=== PATIENT | female | born 1945 | race African-American/Black ===

== ENCOUNTER 2024-06-10 21:05 | Emergency (ER) | payer OTHER ==
[~2024-06-10] VITALS: Ht 165.1 cm; Wt 68.2 kg
[~2024-06-10 21:05] MED LIST: ASPI81CH59 PO; CIPR-173 PO; ENAL1TAB48 PO; GLIP5TAB21 PO; METF-372 PO; METR500T PO; OXYB15TA12 PO; SIMV20TA20 PO
[2024-06-10 21:45] VITALS: PULSE 87; RESP 16; O2SAT 95
[2024-06-10 22:17] LABS: Basophils # (auto) 0.1 10 ^3/uL (0-0.2); Basophils % (auto) 0.6 % (0.0-2.0); Eosinophils # (auto) 0 10 ^3/uL (0-0.8); Hematocrit 37.2 % (36.0-46.0); Hemoglobin 12.2 g/dL (12.2-16.2); Lymphocytes # (auto) 1.4 10 ^3/uL (0.4-5.4); Lymphocytes % (auto) 14.7 % (10.0-50.0); Mean Corpuscular Hemoglobin 30.9 pg (28.0-32.0); Mean Corpuscular Hgb Conc. 32.9 g/dL (32.0-36.0); Mean Corpuscular Volume 93.9 fL (80.0-100.0); Monocytes # (auto) 0.9 10 ^3/uL (0-1.3); Monocytes % (auto) 9.1 % (0.0-12.0); Neutrophils # (auto) 7.4 10 ^3/uL (1.6-8.6); Neutrophils % (auto) 75.6 % (37.0-80.0); Nucleated Red Blood Cells % 0.1 %; Platelet Count (auto) 200 10^3/uL (140-450); Red Blood Cells 3.96 10^6/uL (4.0-5.20); White Blood Cell 9.7 10^3/uL (4.4-10.8)
[2024-06-10 22:24] LABS: Alanine Aminotransferase 32 U/L (7-40); Albumin 4.3 g/dL (3.2-4.8); Alkaline Phosphatase 78 U/L (46-116); Anion Gap 10 (5-15); BUN/Creatinine Ratio 13.1 (10.0-20.0); Bilirubin, Total 0.4 mg/dL (0.2-1.0); Blood Urea Nitrogen 20 mg/dL (9-23); Calcium 9.2 mg/dL (8.7-10.4); Carbon Dioxide 22 mmol/L (20-31); Chloride 99 mmol/L (98-107); Potassium 3.8 mmol/L (3.5-5.1); Total Protein 7.5 g/dL (5.7-8.2)
[2024-06-10 22:26] LABS: Aspartate Aminotransferase 51 U/L (13-40); Glucose 248 mg/dL (74-106); Sodium 131 mmol/L (136-145)
[2024-06-10 23:02] LABS: COVID19 ANTIGEN SOFIA FIA NEGATIVE (NEGATIVE)
--- NOTE | 2024-06-10 23:03 | ED.PDOC ---
History of Present Illness HPI Comments 78 y/o F, with a Hx of CABG, DM, HLD, HTN, and ME, is BIBA for c/o bilateral leg weakness, poor appetite, and diarrhea, today. Per EMS report, patient endorses on leg weakness and poor appetite that has been persisting since initial onset, yesterday, following extensive, multiple diarrhea episodes for the past 3 days. EMS staff noted on patient's daughter commenting on patient also, occasionally, "closing her eyes and not responding to her name for several seconds" and her becoming, suddenly, incontinent, this evening, when being seated in the bathroom. On scene, patient's vitals were stable and within normal limits, with exception of a blood pressure of 95/64. At time of assessment, patient reports, additionally, on falling 3x since onset of weakness (2x on left-side, 1x on right-side) and sustaining mild bruising to her left leg area. She reports no further relevant or pertinent Hx, such as recent sick contact or prior injuries. She denies having any fever, chills, nausea, vomiting, abdominal pain, numbness, tingling, or other associated symptoms or modifiers at this time. Chief Complaint: General Weakness Time Seen by MD: 21:20 Primary Care Provider: ZUNILDA Reviewed Notes: Nurses Notes, Truck Technician Notes, Medications, Allergies Allergies: Coded Allergies: Penicillins (Unverified Allergy, Unknown, 06/16/15) Home Meds Active Scripts Metronidazole (Flagyl) 500 Mg Tab, 500 MG PO TID, #21 TAB Prov:TIFFANI BRANTLEY MD 06/16/15 Ciprofloxacin Hcl (Cipro) 500 Mg Tab, 500 MG PO BID, #14 TAB Prov:TIFFANI BRANTLEY MD 06/16/15 Reported Medications Glipizide (Glipizide) 5 Mg Tab, 1 TAB PO BID, #60 TAB 3 Refills 06/16/15 Simvastatin (Simvastatin) 20 Mg Tab, 1 TAB PO QPM, #30 TAB 5 Refills 06/16/15 Oxybutynin Chloride (Ditropan Xl) 15 Mg Tab, 1 TAB PO DAILY, #30 TAB 11 Refills 06/16/15 Metformin Hydrochloride (Metformin Hcl) 1,000 Mg Tab, 1 TAB PO BID, #60 TAB 5 Refills 06/16/15 Enalapril Maleate (Enalapril Maleate) 20 Mg Tab, 1 TAB PO DAILY, #90 TAB 1 Refill 06/16/15 Aspirin (Aspirin Low Dose) 81 Mg Chw, 1 TAB PO DAILY, #30 TAB 3 Refills 06/16/15 Information Source: Patient, Emergency Med Personnel Mode of Arrival: EMS Severity: Moderate Timing: Hours Duration: Since onset Prehospital treatment: 12 Lead EKG, Accucheck, Drawer In Plain Loom Review of Systems: REVIEW OF SYSTEMS: No fever, no chills, or fatigue HEENT: No sore throat, no earache, no congestion, no neck pain. Cardiac: No chest pain. No palpitations. Lungs: No shortness of breath, no cough. GI: Diarrhea, poor appetite, no nausea, no vomiting, no constipation, no abd ominal pain : No dysuria, frequency, or urgency. No hematuria. Musculoskeletal: No joint pain , no joint swelling, no extremity edema. Skin: Bruising to left leg, no rash, no itching. Neuro: Bilateral leg weakness, no headache, no dizziness Vital Signs Vital Signs Date Time Temp Pulse Resp B/P (MAP) Pulse Ox O2 Delivery O2 Flow Rate FiO2 06/11/24 00:00 89 132/59 (83) 93 06/10/24 21:45 98.4 16 98.4 06/10/24 21:45 Room Air* 0 21 Physical Exam General: Awake, alert and oriented. No acute distress. Skin: Skin in warm, dry and intact. Appropriate color for ethnicity. Nailbeds pink with no cyanosis. HEENT: The head is normocephalic and atraumatic. Conjunctivae are clear without exudates or hemorrhage. Sclera is non-icteric. EOM are intact. No signs of nystagmus. Eyelids are normal in appearance without swelling or lesions. Oral mucosa is pink and moist Neck: The neck is supple with normal range of motion. No JVD. Cardiac: Heart rate and rhythm are normal. No murmurs, gallops, or rubs are auscultated. Respiratory: No signs of respiratory distress. Lung sounds are clear in all lobes bilaterally without rales, ronchi, or wheezes. Abdominal: Suprapubic abdominal tenderness. Abdomen is soft, without distention. Bowel sounds are present and normoactive in all four quadrants. Extremities: Upper and lower extremities are atraumatic in appearance without deformity or edema. Neurological: The patient is awake, alert and oriented to person, place, and time with normal speech. Speech is clear. There is no facial asymmetry. Able to raise both lower extremities off the bed, with normal ankle strength. Psychiatric: Appropriate mood and affect. Good judgement and insight. No visual or auditory hallucinations. Past Medical History PAST MEDICAL HISTORY: DM, High Lipids, HTN, ME Surgical History: CABG LIBRARY SUPERVISOR History: No Pertinent LIBRARY SUPERVISOR History Family History Family History: Unknown Social History Smoker: Non-Smoker Alcohol: Denies ETOH Use Drugs: Denies Drug Use Lives In: Home Other Hx of walker use, does not use, currently Was a procedure done? Was a procedure done?: No EKG EKG : Pulse Rate (adult): 83 [place]: Normal Cardiac Rhythm: NSR Block: None Hypertrophy: None ST: Normal Differential Dx Considerations may include: electrolyte imbalance, dehydration, viral syndrome, UTI, degenerative disc disease X-Ray, Labs, Meds, VS Vital Signs Date Time Temp Pulse Resp B/P (MAP) Pulse Ox O2 Delivery O2 Flow Rate FiO2 06/11/24 00:00 89 132/59 (83) 93 06/10/24 23:03 83 06/10/24 21:45 98.4 82 16 106/53 (70) 95 98.4 06/10/24 21:45 87 16 95 Room Air* 0 21 06/10/24 21:25 98.2 92 18 94/62 (73) 97 06/10/24 21:09 83 Lab Test 06/11/24 00:14 06/10/24 22:00 06/10/24 21:52 Range/Units Urine Color Light-yellow Yellow Urine Clarity Clear Clear Urine pH 6.0 5.0-9.0 Urine Specific [place] 1.011 1.001-1.035 Urine Protein 1+ H Negative Urine Ketones Negative Negative Urine Blood Negative Negative /uL Urine Nitrite Negative Negative Urine Bilirubin Negative Negative Urine Urobilinogen Normal Negative mg/dL Urine Leukocyte Esterase Negative Negative /uL Urine RBC 1 0 - 4 /hpf Urine WBC <1 0 - 5 /hpf Urine Squamous Epithelial Cells None seen <5 /hpf Urine Bacteria None seen None Seen /hpf Urine Glucose Normal Normal mg/dL Influenza Type A Antigen Positive Negative Influenza Type B Antigen Negative Negative SARS-CoV-2 Antigen (Rapid) Negative NEGATIVE White Blood Count 9.7 4.4-10.8 10^3/uL Red Blood Count 3.96 L 4.0-5.20 10^6/uL Hemoglobin 12.2 12.2-16.2 g/dL Hematocrit 37.2 36.0-46.0 % Mean Corpuscular Volume 93.9 80.0-100.0 fL Mean Corpuscular Hemoglobin 30.9 28.0-32.0 pg Mean Corpuscular Hemoglobin Concent 32.9 32.0-36.0 g/dL Red Cell Distribution Width 14.0 11.8-14.3 % Platelet Count 200 140-450 10^3/uL Mean Platelet Volume 8.2 6.9-10.8 fL Neutrophils (%) (Auto) 75.6 37.0-80.0 % Lymphocytes (%) (Auto) 14.7 10.0-50.0 % Monocytes (%) (Auto) 9.1 0.0-12.0 % Eosinophils (%) (Auto) 0.0 0.0-7.0 % Basophils (%) (Auto) 0.6 0.0-2.0 % Neutrophils # (Auto) 7.4 1.6-8.6 10 ^3/uL Lymphocytes # (Auto) 1.4 0.4-5.4 10 ^3/uL Monocytes # (Auto) 0.9 0-1.3 10 ^3/uL Eosinophils # (Auto) 0 0-0.8 10 ^3/uL Basophils # (Auto) 0.1 0-0.2 10 ^3/uL Nucleated Red Blood Cells 0.1 % Sodium Level 131 L 136-145 mmol/L Potassium Level 3.8 3.5-5.1 mmol/L Chloride Level 99 98-107 mmol/L Carbon Dioxide Level 22 20-31 mmol/L Anion Gap 10 5-15 Blood Urea Nitrogen 20 9-23 mg/dL Creatinine 1.53 H 0.550-1.02 mg/dL Glomerular Filtration Rate Calc 34 >90 mL/min BUN/Creatinine Ratio 13.1 10.0-20.0 Serum Glucose 248 H 74-106 mg/dL Lactic Acid Level 1.8 0.4-2.0 mmol/L Calcium Level 9.2 8.7-10.4 mg/dL Total Bilirubin 0.4 0.2-1.0 mg/dL Aspartate Amino Transferase (AST) 51 H 13-40 U/L Alanine Aminotransferase (ALT) 32 7-40 U/L Alkaline Phosphatase 78 46-116 U/L Total Protein 7.5 5.7-8.2 g/dL Albumin 4.3 3.2-4.8 g/dL Current Medications Medications (Trade) Dose Ordered Sig/Hugo Route Start Time Stop Time Status Last Admin Sodium Chloride 1,000 ml @ 1,000 mls/hr Q1H ONCE IV 06/10/24 21:30 06/10/24 22:29 DC 06/11/24 00:43 [place] [address] Ph: [phone] DIAGNOSTIC IMAGING Diagnostic Imaging Report : [id number] Signed PATIENT: BUZZ VIEIRA ACCT: [id number] UNIT: [id number] : 1945 LOC: ER ROOM / BED: / AGE / SEX: 78 / F ADM STATUS: REG ER SERVICE ORDERING PHYSICIAN: CONY BERGER MD PROCEDURE(s): HWOCT - HEAD WITHOUT CONTRAST REASON: General weakness, B/L LE weakness, abd pain ORDER NUMBER(s): [id number], ACCESSION NUMBER(s): [id number] CLINICAL HISTORY: General weakness, B/L LE weakness, abd pain TECHNIQUE: Helical imaging carried out from skull base to vertex without intravenous contrast. This exam was performed according to our departmental dose optimization program. Up-to-date CT equipment and radiation dose reduction techniques are utilized as appropriate. CTDIVol: [CTDIvol] mGy DLP: 2035.4 mGy-cm WID: COMPARISON: None FINDINGS: Mild cerebral volume loss with concordant prominence of the subarachnoid spaces and ventricles. There is mild patchy low attenuation in the cerebral white matter consistent with nonspecific white matter disease. There is no midline shift or mass effect. The castro white matter interfaces are maintained. The basal cisterns are patent. There is no evidence of acute intracranial hemorrhage or extra-axial fluid collection. The mastoid air cells and visualized paranasal sinuses are well-aerated. The patient is edentulous. There is cerumen within the left external auditory canal. IMPRESSION: 1. No acute intracranial abnormality. 2. Mild cerebral volume loss and mild chronic microvascular ischemic change. ATED BY: MALGORZATA BAUTISTA MD DICTATED DATE/TIME: 06/11/24124 SIGNED BY: MALGORZATA BAUTISTA MD SIGNED DATE/TIME: 06/11/24124 CC: [place] [address] Ph: [phone] DIAGNOSTIC IMAGING Diagnostic Imaging Report : [id number] Signed PATIENT: BUZZ VIEIRA ACCT: [id number] UNIT: [id number] : 1945 LOC: ER ROOM / BED: / AGE / SEX: 78 / F ADM STATUS: REG ER SERVICE ORDERING PHYSICIAN: CONY BERGER MD PROCEDURE(s): CXR1 - CHEST XRAY 1 VIEW REASON: Suspected Sepsis ORDER NUMBER(s): [id number], ACCESSION NUMBER(s): [id number] EXAM: XY CHEST XRAY 1 VIEW CLINICAL HISTORY: Suspected Sepsis TECHNIQUE: Single AP view of the chest WID: COMPARISON: CT abdomen and pelvis from same day FINDINGS: Lines and tubes: Prior median sternotomy and CABG Chest: Mild cardiomegaly without pulmonary vascular congestion. No pleural effusion, pneumothorax, or consolidation. Linear bibasilar scarring or atelectasis. The osseous structures are grossly intact. Degenerative change of the right shoulder IMPRESSION: 1. No acute cardiopulmonary abnormality. 2. Mild cardiomegaly. ATED BY: MALGORZATA BAUTISTA MD DICTATED DATE/TIME: 06/11/24121 SIGNED BY: MALGORZATA BAUTISTA MD SIGNED DATE/TIME: 06/11/24121 CC: [place] [address] Ph: [phone] DIAGNOSTIC IMAGING Diagnostic Imaging Report : [id number] Signed PATIENT: BUZZ VIEIRA ACCT: [id number] UNIT: [id number] : 1945 LOC: ER ROOM / BED: / AGE / SEX: 78 / F ADM STATUS: REG ER SERVICE ORDERING PHYSICIAN: CONY BERGER MD PROCEDURE(s): ABPL - CT AB PEL WO CON-NO ORAL OR IV REASON: abdominal pain, ORDER NUMBER(s): [id number], ACCESSION NUMBER(s): [id number] CLINICAL HISTORY: abdominal pain, TECHNIQUE: CT of the abdomen and pelvis was performed without intravenous contrast. This exam was performed according to our departmental dose optimizat ion program. Up-to-date CT equipment and radiation dose reduction techniques are utilized as appropriate. COMPARISON: None FINDINGS: Lower Thorax: Median sternotomy wires are visualized. Linear and dependent bibasilar scarring or atelectasis. Mild cardiomegaly. Marked calcification of [place] coronary arteries. Changes of prior CABG partially imaged. Calcified subcarinal lymph nodes. Liver and Biliary system: Normal-sized liver. No definite hepatic lesion. Gallbladder is normal caliber. No biliary ductal dilatation. Spleen: Unremarkable. Adrenal Glands and Kidneys: Normal adrenal glands. No hydronephrosis. Tiny nonobstructing right upper pole renal calculus. Pancreas and Retroperitoneum: Mild atrophy of the pancreas. There is no retroperitoneal lymphadenopathy. Aorta and Major Vessels: Aortoiliac vessels are normal in caliber with moderate calcified atherosclerotic plaque in the abdominal aorta and Mild calcified plaque in the iliac vessels.. Bowel, Mesentery and Peritoneal space: Normal caliber small and large bowel. There is mild distal colonic diverticulosis. There is no free air or fluid collection. Pelvis: The urinary bladder is decompressed about a Keith catheter. Uterus is atrophic with myometrial vascular calcifications. The ovaries are atrophic. There is no pelvic lymphadenopathy. Abdominal wall and Osseous Structures: Multilevel lower thoracic and lumbar spondylosis. There is bony demineralization. No destructive osseous lesion. IMPRESSION: 1. No bowel obstruction, fluid collection, or free air. 2. Mild distal colonic diverticulosis. 3. Nonobstructing right upper pole renal calculus. 4. Keith catheter decompresses the urinary bladder. 5. Mild cardiomegaly, changes of prior CABG, and marked calcification of [place] coronary arteries, all partially imaged ATED BY: MALGORZATA BAUTISTA MD DICTATED DATE/TIME: 06/11/24 0144 SIGNED BY: MALGORZATA BAUTISTA MD SIGNED DATE/TIME: 06/11/24 0144 CC: Time of 1ST Reevaluation: 21:50 Reevaluation 1ST: Unchanged Patient Education/Counseling: Diagnosis, Treatment Family Education/Counseling: No Family Present Departure 1 Departure Time of Disposition: 23:31 Impression: Primary Impression: HARPREET (acute kidney injury) Additional Impressions: Generalized weakness Influenza A Disposition: 09 ADMITTED INPATIENT Condition: Stable Comments 78-year-old female with generalized weakness and difficulty ambulating. Workup shows influenza a infection acute kidney injury and hyponatremia -IV fluids administered in the ED Patient admitted for further treatment, evaluation and monitoring. Extensive evaluation was performed in attempt to identify or rule out: (See differential diagnosis section) The following tests were ordered, and results were reviewed by me: (See diagnostic results section) The following test were independently interpreted by me: EKG I reviewed and agreed with the following test results read by other providers: Chest x-ray I reviewed the following notes from the pt's past medical encounters: Encounter in 2016 for elevated troponin Additional information was gathered from interviewing the following independent historians: N/A Discussion of management or test interpretation with external physician/other qualified health director critical care: Dr. Hair, hospitalist Addressed an acute or chronic illness that poses a threat to life or bodily function: Hyponatremia, acute kidney injury, influenza a infection Decision regarding hospitalization or escalation of hospital level of care: Risk and benefits of admission for further treatment of patient's condition was considered. Due to patient's current clinical condition, high risk of decline and poor outcome if discharged and need for further inpatient management and monitoring, patient will be admitted to the hospital. Drug therapy requiring intensive monitoring for toxicity: N/A Parenteral controlled substances: N/A Decision regarding elective major surgery with identified patient or procedure risk factors: N/A Decision regarding emergency major surgery: N/A Decision not to resuscitate or to de-escalate care because of poor prognosis: N/A Diagnosis or treatment significantly limited by social determinants of health: Elderly patient who lives alone Critical Care Note Critical Care Time?: No Stability Stability form required: No Heart Score Heart Score: Heart Score Response (Comments) Value History N/A 0 EKG N/A 0 Age N/A 0 Risk Factors N/A 0 Troponin N/A 0 Total 0 I personally scribed for CONY BERGER MD ([email or web address]) on 06/10/24 at 23:03. Electronically submitted by Steven Ragsdale ([email or web address]). I personally scribed for CONY BERGER MD ([email or web address]) on 06/10/24 at 23:04. Electronically submitted by Steven Ragsdale ([email or web address]). I personally scribed for CONY BERGER MD ([email or web address]) on 06/11/24 at 02:14. Electronically submitted by Steven Ragsdale ([email or web address]). CONY BERGER MD Jun 10, 2024 23:03
[2024-06-10 23:04] LABS: Rapid Influenza A Positive (Negative); Rapid Influenza B Negative (Negative)
[2024-06-11 00:23] LABS: Urine Bacteria None Seen /hpf (None Seen)
[2024-06-11 00:37] LABS: Urine Blood Negative /uL (Negative); Urine Clarity Clear (Clear); Urine Color Light-Yellow (Yellow); Urine Protein, UAD 1+ (Negative); Urine Specific Gravity 1.011 (1.001-1.035); Urine Squamous Epithelial Cell None Seen /hpf (<5); Urine Urobilinogen Normal (Negative); Urine WBC <1 /hpf (0 - 5)
[2024-06-11] MEDS: SODIUM CHLORIDE 0.9% 1,000 ML IV ONE ×2 (00:43→07:01)
--- NOTE | 2024-06-11 01:25 | DVH ---
EXAM: XY CHEST XRAY 1 VIEW CLINICAL HISTORY: Suspected Sepsis TECHNIQUE: Single AP view of the chest WID: COMPARISON: CT abdomen and pelvis from same day FINDINGS: Lines and tubes: Prior median sternotomy and CABG Chest: Mild cardiomegaly without pulmonary vascular congestion. No pleural effusion, pneumothorax, or consolidation. Linear bibasilar scarring or atelectasis. The osseous structures are grossly intact. Degenerative change of the right shoulder IMPRESSION: 1. No acute cardiopulmonary abnormality. 2. Mild cardiomegaly.
--- NOTE | 2024-06-11 01:27 | DVH ---
CLINICAL HISTORY: General weakness, B/L LE weakness, abd pain TECHNIQUE: Helical imaging carried out from skull base to vertex without intravenous contrast. This e xam was performed according to our departmental dose optimization program. Up-to-date CT equipment an d radiation dose reduction techniques are utilized as appropriate. CTDIVol: [CTDIvol] mGy DLP: 2035.4 mGy-cm WID: COMPARISON: None FINDINGS: Mild cerebral volume loss with concordant prominence of the subarachnoid spaces and ventricles. There is mild patchy low attenuation in the cerebral white matter consistent with nonspecific white matter disease. There is no midline shift or mass effect. The castro white matter interfaces are maintained. The basal cisterns are patent. There is no evidence of acute intracranial hemorrhage or extra-axial fluid sae ection. The mastoid air cells and visualized paranasal sinuses are well-aerated. The patient is edent ulous. There is cerumen within the left external auditory canal. IMPRESSION: 1. No acute intracranial abnormality. 2. Mild cerebral volume loss and mild chronic microvascular ischemic change.
--- NOTE | 2024-06-11 01:47 | DVH ---
CLINICAL HISTORY: abdominal pain, TECHNIQUE: CT of the abdomen and pelvis was performed without intravenous contrast. This exam was per formed according to our departmental dose optimization program. Up-to-date CT equipment and radiation dose reduction techniques are utilized as appropriate. COMPARISON: None FINDINGS: Lower Thorax: Median sternotomy wires are visualized. Linear and dependent bibasilar scarring or atel ectasis. Mild cardiomegaly. Marked calcification of [place] coronary arteries. Changes of prior CABG p artially imaged. Calcified subcarinal lymph nodes. Liver and Biliary system: Normal-sized liver. No definite hepatic lesion. Gallbladder is normal calib er. No biliary ductal dilatation. Spleen: Unremarkable. Adrenal Glands and Kidneys: Normal adrenal glands. No hydronephrosis. Tiny nonobstructing right upper pole renal calculus. Pancreas and Retroperitoneum: Mild atrophy of the pancreas. There is no retroperitoneal lymphadenopat hy. Aorta and Major Vessels: Aortoiliac vessels are normal in caliber with moderate calcified atheroscler otic plaque in the abdominal aorta and Mild calcified plaque in the iliac vessels.. Bowel, Mesentery and Peritoneal space: Normal caliber small and large bowel. There is mild distal col onic diverticulosis. There is no free air or fluid collection. Pelvis: The urinary bladder is decompressed about a Keith catheter. Uterus is atrophic with myometria l vascular calcifications. The ovaries are atrophic. There is no pelvic lymphadenopathy. Abdominal wall and Osseous Structures: Multilevel lower thoracic and lumbar spondylosis. There is [place] demineralization. No destructive osseous lesion. IMPRESSION: 1. No bowel obstruction, fluid collection, or free air. 2. Mild distal colonic diverticulosis. 3. Nonobstructing right upper pole renal calculus. 4. Keith catheter decompresses the urinary bladder. 5. Mild cardiomegaly, changes of prior CABG, and marked calcification of [place] coronary arteries, al l partially imaged
--- NOTE | 2024-06-11 04:10 | ECG ---
[facility] Test Date: 2024-06-10 Test Time: 21:09:47 Pat Name: BUZZ VIEIRA Department: ED Room: Gender: F Correctional Manager: KAREN : 1945 Requested By: EMERGENCY EMERGENCY Order Number: [id number] Reading MD: Measurements Intervals Orient Rate: 83 P: 47 WY: 170 QRS: 12 QRSD: 87 T: 44 QT: 362 QTc: 426 Interpretive Statements Sinus rhythm Borderline ST depression, lateral leads Borderline ST elevation, inferior leads Please click the below link to view image of tracing.
[2024-06-11 07:34] LABS: Basophils # (auto) 0 10 ^3/uL (0-0.2); Basophils % (auto) 0.4 % (0.0-2.0); Eosinophils # (auto) 0 10 ^3/uL (0-0.8); Eosinophils % (auto) 0.1 % (0.0-7.0); Hematocrit 35.8 % (36.0-46.0); Hemoglobin 12.1 g/dL (12.2-16.2); Lymphocytes # (auto) 1.4 10 ^3/uL (0.4-5.4); Lymphocytes % (auto) 18.6 % (10.0-50.0); Mean Corpuscular Hemoglobin 31.1 pg (28.0-32.0); Mean Corpuscular Hgb Conc. 33.7 g/dL (32.0-36.0); Mean Corpuscular Volume 92.4 fL (80.0-100.0); Monocytes # (auto) 0.7 10 ^3/uL (0-1.3); Monocytes % (auto) 9.8 % (0.0-12.0); Neutrophils # (auto) 5.3 10 ^3/uL (1.6-8.6); Neutrophils % (auto) 71.1 % (37.0-80.0); Nucleated Red Blood Cells % 0.1 %; Platelet Count (auto) 181 10^3/uL (140-450); Red Blood Cells 3.88 10^6/uL (4.0-5.20); Red Cell Distribution Width 13.9 % (11.8-14.3); White Blood Cell 7.5 10^3/uL (4.4-10.8)
[2024-06-11 07:38] VITALS: PULSE 84; RESP 20; O2SAT 95
[2024-06-11 07:44] LABS: Alanine Aminotransferase 31 U/L (7-40); Albumin 4.3 g/dL (3.2-4.8); Alkaline Phosphatase 74 U/L (46-116); Anion Gap 9 (5-15); Aspartate Aminotransferase 47 U/L (13-40); BUN/Creatinine Ratio 15.6 (10.0-20.0); Bilirubin, Total 0.4 mg/dL (0.2-1.0); Blood Urea Nitrogen 23 mg/dL (9-23); Calcium 9.4 mg/dL (8.7-10.4); Carbon Dioxide 23 mmol/L (20-31); Chloride 102 mmol/L (98-107); Glucose 164 mg/dL (74-106); Potassium 4.1 mmol/L (3.5-5.1); Sodium 134 mmol/L (136-145); Total Protein 7.3 g/dL (5.7-8.2)
[2024-06-11 13:23] VITALS: BP 105/66; PULSE 88; RESP 20; TEMP 97.9; O2SAT 94
--- NOTE | 2024-06-11 19:21 | DVHINCON2 ---
DATE OF CONSULTATION: 06/11/2024 CHIEF COMPLAINT: Coming in for generalized weakness, difficulty standing up. HISTORY OF PRESENT ILLNESS: This is an 78-year-old female with significant past medical history for coronary artery disease, status post CABG, diabetes mellitus type 2, hyperlipidemia, hypertension, who presents today via ambulance secondary to bilateral lower extremity weakness, poor appetite and apparently diarrhea. The patient apparently in the last 3-4 days has been feeling generalized weakness. She has been having some loose stools at home. She also has a new onset of cough for the last 4 days, says that she has had some phlegm that has been yellowish in nature. She denies any headaches or earaches. She does have fatigue. No nausea, no vomiting. The patient has also been experiencing headaches and fatigue, but denies any nausea or vomiting, any earaches or sore throats. She does have some joint pains that seems to be chronic in nature and she has had some loose stools again over the last few days. She denies any shortness of breath, but does have some intermittent right sided chest pain that is off and on, does not happen often and she is unable to give any form of a history, some right sided chest pain that occurs once in a blue dinero which she says is nothing and cannot give any further information on that. The patient expressed occasionally she would get some sharp chest pains on the right side, which are very short in nature and unable to give any further history on it. PAST MEDICAL HISTORY: As described above. PAST SURGICAL HISTORY: Had a coronary bypass surgery. SOCIAL HISTORY: No tobacco, no alcohol, no illicit drugs. MEDICATIONS: At home per medical reconciliation. MEDICATION ALLERGIES: No known drug allergies. REVIEW OF SYSTEMS: A 10-point review of system was covered with the patient and was negative with exception to those present in history of present illness. PHYSICAL EXAMINATION: VITAL SIGNS: Temperature 98.4, pulse rate 89, respiratory rate 16, blood pressure 130/59, pulse ox about 93% on room air. GENERAL: Seems to be alert and oriented x 3, not in acute distress female, lying in bed. HEENT: Normocephalic, atraumatic. Extraocular muscles are intact. Pupils are equally round, react to light and accommodation. Mucous membranes look slightly dry. CARDIOVASCULAR: S1, S2 positive, regular rate and rhythm. No rubs, gallops or murmurs. LUNGS: Seems to be clear to auscultation bilaterally. No wheeze, rhonchi or rales. ABDOMEN: Seems to be soft, nontender, nondistended, positive bowel sounds. No guarding, no rebound. EXTREMITIES: Right upper extremity, arm seems to be swollen. The patient seems to have infiltrates in her IV line. Left upper extremity seems to be without any swelling. Lower extremities without any swelling, clubbing or cyanosis. NEUROLOGIC: No focal deficits on examination. Cranial nerves testing 2-12 overall seems to be intact without any focal deficits. LABORATORY WORKUP: Shows a white count 9.7, H and H of 12.2/37.2, platelet count of 200,000. There is no neutrophil shift. Sodium of 131, potassium of 3.8, chloride 99, carbon dioxide 22, anion gap of 10, BUN of 20, creatinine 1.53. Serum glucose of 248. Lactic acid 1.8, total bilirubin 0.4, AST 51, ALT of 32, alkaline phosphatase of 78. Urine testing was negative for nitrites, negative for leukocyte esterase, less than 1 wbc. Serology screening showed influenza A positive and negative for influenza B and SARS-CoV-2 antigen rapid was negative as well. IMAGING: Chest x-ray shows no acute cardiopulmonary disease shows mild cardiomegaly. CT abdomen and pelvis without contrast shows no bowel obstruction, fluid collection or free air. Mild distal colonic diverticulosis, nonobstructing right upper pole renal calculus. Keith catheter decompressing the urinary bladder, mild cardiomegaly changes of prior CABG and marked calcifications of the jamul coronary arteries, all partially imaged. Head CT scan was also completed shows no acute intracranial abnormality, mild cerebral volume loss and mild chronic microvascular ischemic changes. DIAGNOSES: * Influenza A infection. * Acute kidney injury. * Generalized weakness. PLAN: The patient was kept in the Emergency Room and full assessment was completed. The patient initially showing up with labile blood pressures, which resolved with 1 liter of IV fluids. The patient's renal functions also slightly improved with IV hydration with a creatinine of 1.53-1.47. The patient's sodium also improved from 131-134 and hyperglycemia, also improved from 248-164. The patient again was found to have influenza A infection likely leading to the patient's symptoms to include diarrhea and headaches. The patient will be recommended to be initiated on Tamiflu 30 mg twice a day for 5 day course to be initiated at the rehab facility and will be recommending the patient to be transitioned to a rehab facility due to generalized weakness, likely induced by her current influenza A infection. Additionally, the patient to have repeat a renal function panel in 2-3 days to follow up with the resolution of her acute kidney injury. The patient otherwise may resume all her home medications on transfer to rehab. The patient to return to the Emergency Room in case of any fevers, chills, chest pain, shortness of breath, dizziness, palpitation or any other concerning signs and/or symptoms. MD LIANG Grigsby TID: [id number] RECEIPT: [id number]
== END 2024-06-11 07:20 | disposition home or self-care (01) ==
LOC: ER 21:05 → EDBD 21:05 → ER 06-11 07:20
DX: J10.1 Influenza due to other identified influenza virus with other respiratory manifestations (principal); N17.9 Acute kidney failure, unspecified; E11.65 Type 2 diabetes mellitus with hyperglycemia; E78.5 Hyperlipidemia, unspecified; Z79.82 Long term (current) use of aspirin; Z79.84 Long term (current) use of oral hypoglycemic drugs; Z79.899 Other long term (current) drug therapy; Z88.0 Allergy status to penicillin; Z95.1 Presence of aortocoronary bypass graft; Z20.822 Contact with and (suspected) exposure to COVID-19
CPT/HCPCS: 36415; 70450; 71045; 74176; 80053; 81001; 83605; 85025; 87040; 87426; 87804; 93005; 96360; 99285; J7030